=== PATIENT | female | born 1955 | race Caucasian/White ===

== ENCOUNTER → 2018-08-14 | Outpatient (CLI) | payer BC ==
[~2018-08-14] MED LIST: COZAAR100 MG PO; LASIX 20MG TABL20 MG PO; MASON NATURAL1200 MG PO; NEURONTIN600 MG/TAB PO; WOMEN'S DAILY1 TAB PO
== END ==
LOC: SUN.DIA 11:47
DX: E11.40 Type 2 diabetes mellitus with diabetic neuropathy, unspecified (principal); I10 Essential (primary) hypertension; E78.5 Hyperlipidemia, unspecified; E66.9 Obesity, unspecified
CPT/HCPCS: G0108

== ENCOUNTER → 2018-09-04 | Outpatient (CLI) | payer BC | LOC: SUN.DIA 09:39 | DX: E11.40 Type 2 diabetes mellitus with diabetic neuropathy, unspecified (principal); I10 Essential (primary) hypertension; E78.5 Hyperlipidemia, unspecified; E66.9 Obesity, unspecified | CPT/HCPCS: G0108 ==

== ENCOUNTER → 2018-10-02 | Outpatient (CLI) | payer BC | LOC: MC.RAD 10:25 | DX: Z12.31 Encounter for screening mammogram for malignant neoplasm of breast (principal) ==

== ENCOUNTER → 2020-08-26 | Outpatient (CLI) | payer BC | LOC: MC.RAD 07:00 | DX: Z12.31 Encounter for screening mammogram for malignant neoplasm of breast (principal); R92.0 Mammographic microcalcification found on diagnostic imaging of breast ==

== ENCOUNTER → 2020-08-30 | Outpatient (CLI) | payer BC | LOC: MC.RAD 09:25 | DX: R92.0 Mammographic microcalcification found on diagnostic imaging of breast (principal) ==

== ENCOUNTER → 2020-09-08 | Outpatient (CLI) | payer BC | LOC: MC.RAD 12:30 | DX: R92.0 Mammographic microcalcification found on diagnostic imaging of breast (principal); Z98.82 Breast implant status ==

== ENCOUNTER 2021-01-07 06:45 | Day surgery (SDC) | payer BC ==
[~2021-01-07] VITALS: Ht 167.6 cm; Wt 107.9 kg
[2021-01-07 08:44] VITALS: BP 156/73; PULSE 76; TEMP 98.5
[2021-01-07] MEDS ORDERED: NEURONTIN800 MG/TAB PO (08:52)
[2021-01-07] MEDS ORDERED: GLUCOPHAGE XR500 M1 PO (08:53)
[2021-01-07] MEDS ORDERED: ZOCOR 20MG20 MG PO (08:54)
[2021-01-07] MEDS ORDERED: ASPIRIN E.C. 8181 MG PO (08:54)
[2021-01-07] MEDS ORDERED: PROBIOTIC FORMU1 CAP PO (08:56)
[2021-01-07 10:38] VITALS: BP 117/57; PULSE 71; TEMP 98.2
--- NOTE | 2021-01-07 10:38 | NUR ---
TO RM 7 PER CART FROM OR. ALERT ORIENTED X3, TALKING TO STAFF. DENIES PAIN OR DISCOMFORT. DENIES NAUSEA. DRESSING CLEAN DRY INTACT.
[2021-01-07] MEDS ORDERED: NORCO 325 MG-51 TAB PO (10:42)
[2021-01-07 10:55] VITALS: BP 131/79; PULSE 71
--- NOTE | 2021-01-07 10:55 | NUR ---
RECEIVED WATER AND TAKING SIPS. TEXTING ON CELL PHONE.
[2021-01-07 11:10] VITALS: BP 142/65; PULSE 70
[2021-01-07 11:25] VITALS: BP 155/67; PULSE 69
--- NOTE | 2021-01-07 11:25 | NUR ---
RECEIVED MUFFIN AND DIET PEPSI
--- NOTE | 2021-01-07 11:30 | NUR ---
AMBULATED TO BATHROOM WITH ASSIST AND TOLERATED WELL VOIDED AMBULATED BACK TO ATE 100% AND TOLERATED WELL.
--- NOTE | 2021-01-07 12:12 | NUR ---
RECEIVED DISCHARGE INSTRUCTIONS AND VERBALIZED UNDERSTANDING. DISCONTINUED IV AND INT- CATHETER INTACT. PATIENT GETTING DRESSED
--- NOTE | 2021-01-07 12:20 | NUR ---
DISCHARGED PER WC BY NURSING STAFF TO PRIVATE CAR IN CARE OF .
== END 2021-01-07 12:42 | disposition home or self-care (01) ==
LOC: SDCO 06:45 → COL.RAD 07:00 → SDCO 08:30
DX: D05.01 Lobular carcinoma in situ of right breast (principal); N60.91 Unspecified benign mammary dysplasia of right breast; E11.9 Type 2 diabetes mellitus without complications; M19.90 Unspecified osteoarthritis, unspecified site; I10 Essential (primary) hypertension; E78.5 Hyperlipidemia, unspecified; Z20.822 Contact with and (suspected) exposure to COVID-19; Z79.84 Long term (current) use of oral hypoglycemic drugs; Z80.0 Family history of malignant neoplasm of digestive organs; Z80.1 Family history of malignant neoplasm of trachea, bronchus and lung; Z79.82 Long term (current) use of aspirin; Z79.899 Other long term (current) drug therapy
CPT/HCPCS: J0690; J2704; J7120

== ENCOUNTER 2021-09-12 09:58 | Day surgery (SDC) | payer MEDICARE ==
[2021-09-12] VITALS (10 sets, daily range): BP systolic 134–165; BP diastolic 76–91; PULSE 66–77; TEMP 98.1
[~2021-09-12] VITALS: Ht 167.6 cm; Wt 106.8 kg
[~2021-09-12 09:58] MED LIST changes: +ASPIRIN E.C. 8181 MG PO; +GLUCOPHAGE XR500 M1 PO; +NEURONTIN800 MG/TAB PO; +NORCO 325 MG-51 TAB PO; +PROBIOTIC FORMU1 CAP PO; +ZOCOR 20MG20 MG PO
[2021-09-12 10:45] LABS: HEMATOCRIT 39.7 % (37.0-47.0); HEMOGLOBIN 13.2 g/dl (12.5-16.0); MEAN CELL VOLUME 93 fl (80.0-100.0); MEAN CORPUSCULAR HEMOGLOBIN 31 pg (27.0-31.0); MEAN CORPUSCULAR HGB CONC 33 g/dl (33.0-37.0); MEAN PLATELET VOLUME 8.7 fl (7.4-10.4); PLATELET COUNT 225 K/mm3 (130-400); RED BLOOD COUNT 4.28 M/mm3 (4.10-5.30); REDCELL DISTRIBUTION WIDTH-CV 12.9 % (11.5-14.5)
[2021-09-12 10:53] LABS: INR 1.1 (0.8-3.0)
[2021-09-12 10:55] LABS: PARTIAL THROMBOPLASTIN TIME 28.8 SECONDS (26.0-37.0)
[2021-09-12] MEDS ORDERED: TOPROL XL 25MG25 MG PO (10:56)
[2021-09-12] MEDS ORDERED: EVISTA 60MG60 MG/TAB PO (10:57)
[2021-09-12 11:00] LABS: CALCIUM 9.5 mg/dL (8.4-10.2); CREATININE, serum 0.76 mg/dL (0.57-1.11); POTASSIUM 3.8 mmol/L (3.5-4.5)
--- NOTE | 2021-09-12 12:10 | NUR ---
Report from Tamia VALENZUELA. Transferred by bed from Security Manager. Alert and oriented, denies pain and needs at this time. Right Tband with 12 cc air CD&I, good pulses and cap refill < 3 secs noted. VSS. Will continue to monitor
--- NOTE | 2021-09-12 14:48 | NUR ---
12 cc air released from right Tband and dressing applied. INT discontinued intact. Ambulated to bathroom with steady gait.
--- NOTE | 2021-09-12 15:00 | NUR ---
Discharge instructions given. Transferred to private car by [place]
== END 2021-09-12 15:38 ==
LOC: COL.CAR 09:58
PROVIDERS: Internal Medicine Cardiovascular Disease
DX: I25.10 Atherosclerotic heart disease of native coronary artery without angina pectoris (principal); I10 Essential (primary) hypertension; E66.9 Obesity, unspecified; E78.2 Mixed hyperlipidemia; E11.9 Type 2 diabetes mellitus without complications; M17.0 Bilateral primary osteoarthritis of knee; G62.9 Polyneuropathy, unspecified; Z79.82 Long term (current) use of aspirin; Z68.38 Body mass index [BMI] 38.0-38.9, adult; Z79.84 Long term (current) use of oral hypoglycemic drugs; Z79.899 Other long term (current) drug therapy; Z80.0 Family history of malignant neoplasm of digestive organs; Z80.1 Family history of malignant neoplasm of trachea, bronchus and lung; Z83.3 Family history of diabetes mellitus; Z82.3 Family history of stroke
CPT/HCPCS: C1769; J1644; J2250; J2405; J3010; Q9967

== ENCOUNTER → 2021-11-30 | Outpatient (CLI) | payer MEDICARE ==
[~2021-11-30] MED LIST changes: +EVISTA 60MG60 MG/TAB PO; +TOPROL XL 25MG25 MG PO
== END ==
LOC: MC.RAD 08:45
DX: Z00.00 Encounter for general adult medical examination without abnormal findings (principal); Z12.31 Encounter for screening mammogram for malignant neoplasm of breast

== ENCOUNTER → 2024-06-25 | Outpatient (CLI) | payer MEDICARE | LOC: MC.RAD 11:14 | DX: Z12.31 Encounter for screening mammogram for malignant neoplasm of breast (principal) ==